=== PATIENT | female | born 1940 | race Caucasian/White ===

== ENCOUNTER 2021-05-28 09:05 | Inpatient (IN) | payer BC ==
[2021-05-28 10:14] LABS: BASO % 0.3 % (0-2.0); EOS % 0.2 % (0-4.5); HEMOGLOBIN 10.7 GM/dL (10.7-15.3); LYMPH % 7.3 % (8-40); MCH 27.9 pg (25.7-33.7); MCHC 33.5 g/dl (32.0-36.0); MEAN CELL VOLUME 83.2 fl (80-96); MEAN PLT VOLUME 7.6 fl (7.5-11.1); MONO % 5.4 % (3.8-10.2); NEUT % 86.8 % (42.8-82.8); PLATELET COUNT 464 10^3/uL (134-434); RBC 3.84 M/mm3 (3.60-5.2); RDW 15.5 % (11.6-15.6); WHITE BLOOD COUNT 15.7 K/mm3 (4.0-10.0)
[2021-05-28 10:20] LABS: INR 1.06 (0.83-1.09)
[2021-05-28 10:23] LABS: ACTIVATED PTT 31.3 SECONDS (25.2-36.5)
[2021-05-28 10:41] LABS: CHLORIDE 104 mmol/L (98-107); SODIUM 136 mmol/L (136-145)
[2021-05-28 10:44] LABS: ALBUMIN 2.6 g/dl (3.4-5.0); ANION GAP 11 MMOL/L (8-16); CALCIUM 8.8 mg/dL (8.5-10.1); CO2 21 mmol/L (21-32); LIPASE 122 U/L (73-393)
[2021-05-28 10:45] LABS: BLOOD UREA NITROGEN 22.6 mg/dL (7-18); GLUCOSE,RANDOM 186 mg/dL (74-106)
[2021-05-28 10:47] LABS: CREATININE 1.5 mg/dL (0.55-1.3); SGOT/AST 105 U/L (15-37); SGPT/ALT 97 U/L (13-61)
[2021-05-28 10:49] LABS: BILIRUBIN,TOTAL 2.5 mg/dL (0.2-1); TOT PROT 7.4 g/dl (6.4-8.2)
[2021-05-28] MEDS ORDERED: SODIUM CHLORIDE 0.9% 500 ML INFUS.BAG IV ONE (11:03)
[2021-05-28 11:21] LABS: ALK PHOS 1154 U/L (45-117)
[2021-05-28] MEDS ORDERED: PIPERACILLIN/TAZOB 4.5 GM 4.5 GM in DEXTROSE 5%-WATER 100 ML IVPB ONE (16:04)
[2021-05-28] MEDS ORDERED: PIPERACILLIN/TAZOB 4.5 GM 4.5 GM/100 ML BAG IVPB ONE (16:11)
[2021-05-28] MEDS ORDERED: LACTATED RINGERS SOLUTION 1,000 ML/1,000 ML INFUS.BAG IV SCH (16:15)
[2021-05-28] MEDS ORDERED: HEPARIN NA (PORCINE) 5,000 UNITS/ML 1ML VIAL SQ ONE (17:45)
[2021-05-28] MEDS ORDERED: HEPARIN NA (PORCINE) 5,000 UNITS/ML 1ML VIAL ONE (19:24)
[2021-05-28] MEDS ORDERED: PANTOPRAZOLE SODIUM 40 MG/100 ML BAG IVPB ONE (19:24)
[2021-05-28] MEDS: PANTOPRAZOLE SODIUM 40 MG VIAL IVPUSH SCH (19:35)
[2021-05-28] MEDS ORDERED: INSULIN (NOVOLOG) ASPART 100 UNITS/ML 10ML VIAL ONE (21:23)
[2021-05-28] MEDS: INSULIN SLIDING SCALE (NOVOLOG) 1 VIAL SQ SCH (22:07)
[2021-05-29] MEDS: PIPERACILLIN/TAZOB 3.375 GM 3.375 GM in DEXTROSE 5%-WATER - 50 ML IVPB SCH ×3 (02:00→11:36)
[2021-05-29] MEDS ORDERED: PIPERACILLIN/TAZOBACTAM 3.375 GM VIAL IVPB ONE ×3 (02:09→18:18)
[2021-05-29] MEDS ORDERED: DEXTROSE 5%-WATER - 50 ML IVPB ONE ×3 (02:10→18:18)
[2021-05-29 03:07] VITALS: BMI 22.9
[2021-05-29] MEDS: INSULIN SLIDING SCALE (NOVOLOG) 1 VIAL SQ SCH ×4 (06:44→21:34)
[2021-05-29 08:32] LABS: BASO % 0.5 % (0-2.0); EOS % 3.1 % (0-4.5); HEMATOCRIT 29.9 % (32.4-45.2); HEMOGLOBIN 9.9 GM/dL (10.7-15.3); LYMPH % 29.8 % (8-40); MCH 27.6 pg (25.7-33.7); MCHC 33.1 g/dl (32.0-36.0); MEAN CELL VOLUME 83.5 fl (80-96); MEAN PLT VOLUME 7.6 fl (7.5-11.1); MONO % 5.2 % (3.8-10.2); NEUT % 61.4 % (42.8-82.8); PLATELET COUNT 465 10^3/uL (134-434); RBC 3.58 M/mm3 (3.60-5.2); RDW 15.2 % (11.6-15.6); WHITE BLOOD COUNT 12.2 K/mm3 (4.0-10.0)
[2021-05-29 09:11] LABS: ALBUMIN 2.4 g/dl (3.4-5.0); BLOOD UREA NITROGEN 18.8 mg/dL (7-18)
[2021-05-29 09:12] LABS: CALCIUM 8.7 mg/dL (8.5-10.1); MAGNESIUM 1.9 mg/dL (1.8-2.4)
[2021-05-29 09:14] LABS: CREATININE 1.4 mg/dL (0.55-1.3); PHOSPHOROUS 3.3 mg/dL (2.5-4.9)
[2021-05-29 09:16] LABS: BILIRUBIN,TOTAL 2.8 mg/dL (0.2-1); TOT PROT 6.6 g/dl (6.4-8.2)
[2021-05-29] MEDS: PANTOPRAZOLE SODIUM 40 MG VIAL IVPUSH SCH (09:56)
[2021-05-29] MEDS ORDERED: ENOXAPARIN NA (PORCINE) 40 MG/0.4 ML DISP.SYRIN SQ SCH (10:00)
[2021-05-29] MEDS: LACTATED RINGERS SOLUTION 1,000 ML/1,000 ML INFUS.BAG IV SCH (11:09)
[2021-05-29 14:07] LABS: EPI CELLS 29 /uL (0-25.1); HYALINE CASTS 2 /uL (0-3.1); URINE APPEARANCE CLEAR; URINE BACTERIA 11 /uL (0-1359); URINE BILIRUBIN NEGATIVE (NEGATIVE); URINE COLOR YELLOW; URINE GLUCOSE (UA) NEGATIVE (NEGATIVE); URINE KETONE TRACE (NEGATIVE); URINE LEUK ESTERASE NEGATIVE (NEGATIVE); URINE NITRITE NEGATIVE (NEGATIVE); URINE PROTEIN 1+ (NEGATIVE); URINE UROBILINOGEN 0.2 mg/dL (0.2-1.0); URINE WBC 15 /uL (0-25.8)
[2021-05-29] MEDS ORDERED: MIDAZOLAM HCL 2 MG/2 ML SINGLE DOSE VIAL ONE (14:28)
[2021-05-29 14:58] LABS: URINE RBC 33.5 /uL (0-23.9); YEAST NONE SEEN (NEGATIVE)
[2021-05-29] MEDS ORDERED: IOHEXOL 300 MG/ML INFUS..BTL IJ ONE (15:00)
[2021-05-29] MEDS ORDERED: ONDANSETRON 4 MG/2 ML VIAL IVPUSH PRN (15:44)
[2021-05-29] MEDS ORDERED: ACETAMINOPHEN 1000 MG/100 ML VIAL (NON FORMULARY) IVPB PRN (17:05)
[2021-05-29] MEDS ORDERED: PIPERACILLIN/TAZOB 3.375 GM 3.375 GM in DEXTROSE 5%-WATER - 50 ML IVPB SCH (18:00)
[2021-05-29] MEDS ORDERED: PIPERACILLIN/TAZOB 2.25 GM 2.25 GM in DEXTROSE 5%-WATER - 50 ML IVPB SCH (18:00)
[2021-05-29] MEDS: PIPERACILLIN/TAZOB 3.375 GM 2.25 GM in DEXTROSE 5%-WATER - 50 ML IVPB SCH (18:23)
[2021-05-30] MEDS ORDERED: PIPERACILLIN/TAZOBACTAM 3.375 GM VIAL IVPB ONE (00:56)
[2021-05-30] MEDS ORDERED: DEXTROSE 5%-WATER - 50 ML IVPB ONE (00:56)
[2021-05-30] MEDS: LACTATED RINGERS SOLUTION 1,000 ML/1,000 ML INFUS.BAG IV SCH (01:11)
[2021-05-30] MEDS: PIPERACILLIN/TAZOB 3.375 GM 2.25 GM in DEXTROSE 5%-WATER - 50 ML IVPB SCH (01:11)
[2021-05-30 05:16] VITALS: BP 142/82; PULSE 82; TEMP 98.5
== END 2021-05-30 05:10 | disposition short-term general hospital (02) | DRG 445 ==
LOC: JER 09:05 → JERBED 15:21 → J8W 20:58
PROVIDERS: ADMIT Internal Medicine; ATTEND Internal Medicine
DX: K80.20 Calculus of gallbladder without cholecystitis without obstruction (principal); N17.9 Acute kidney failure, unspecified; R10.11 Right upper quadrant pain; R74.01 Elevation of levels of liver transaminase levels; D72.829 Elevated white blood cell count, unspecified; R91.8 Other nonspecific abnormal finding of lung field; N83.209 Unspecified ovarian cyst, unspecified side; E11.9 Type 2 diabetes mellitus without complications; E78.5 Hyperlipidemia, unspecified; I10 Essential (primary) hypertension; K21.9 Gastro-esophageal reflux disease without esophagitis; I95.9 Hypotension, unspecified
CPT/HCPCS: 36415; 74176-TC; 76000-TC-FY; 76705-TC; 80053; 81003; 82550; 82570; 82962; 83690; 83735; 84100; 84156; 84300; 84484; 85025; 85610; 85730; 87040; 93005; 93010; 93306-TC; 94760; 99285-25; C9803; J1644; U0003; U0005

== ENCOUNTER 2021-07-13 09:10 | Inpatient (IN) | payer BC ==
[2021-07-13 10:28] LABS: MCH 26.5 pg (25.7-33.7); MCHC 33.4 g/dl (32.0-36.0); MEAN CELL VOLUME 79.3 fl (80-96); MEAN PLT VOLUME 6.4 fl (7.5-11.1); PLATELET COUNT 521 10^3/uL (134-434); RDW 16.7 % (11.6-15.6); WHITE BLOOD COUNT 9.2 K/mm3 (4.0-10.0)
[2021-07-13 10:34] LABS: INR 2.84 (0.83-1.09); PROTHROMBIN TIME (PATIENT) 32.2 SEC (9.7-13.0)
[2021-07-13 10:37] LABS: ACTIVATED PTT 35.3 SECONDS (25.2-36.5)
[2021-07-13 10:49] LABS: CHLORIDE 104 mmol/L (98-107); SODIUM 133 mmol/L (136-145)
[2021-07-13 10:52] LABS: ALBUMIN 1.9 g/dl (3.4-5.0); ANION GAP 11 MMOL/L (8-16); BLOOD UREA NITROGEN 51.6 mg/dL (7-18); CO2 18 mmol/L (21-32); GLUCOSE,RANDOM 156 mg/dL (74-106)
[2021-07-13 10:55] LABS: CREATININE 1.4 mg/dL (0.55-1.3); SGOT/AST 21 U/L (15-37); SGPT/ALT 14 U/L (13-61)
[2021-07-13 10:57] LABS: ALK PHOS 248 U/L (45-117); BILIRUBIN,TOTAL 1.3 mg/dL (0.2-1); TOT PROT 6.7 g/dl (6.4-8.2)
[2021-07-13 11:00] LABS: N-TERMINAL BNP 3693.6 pg/ml (5-450)
[2021-07-13] MEDS ORDERED: FUROSEMIDE 40 MG/4 ML INJECTABLE VIAL IVPUSH ONE (11:04)
[2021-07-13] MEDS ORDERED: FUROSEMIDE 40 MG/4 ML INJECTABLE VIAL ONE (11:11)
[2021-07-13] MEDS ORDERED: RIVAROXABAN 20 MG TABLET PO SCH (18:00)
[2021-07-13] MEDS: INSULIN SLIDING SCALE (NOVOLOG) 1 VIAL SQ SCH (23:18)
[2021-07-14] MEDS: INSULIN SLIDING SCALE (NOVOLOG) 1 VIAL SQ SCH ×4 (06:01→21:33)
[2021-07-14 09:49] LABS: HEMATOCRIT 24.2 % (32.4-45.2); HEMOGLOBIN 7.9 GM/dL (10.7-15.3); MCH 25.9 pg (25.7-33.7); MCHC 32.7 g/dl (32.0-36.0); MEAN CELL VOLUME 79.4 fl (80-96); MEAN PLT VOLUME 6.6 fl (7.5-11.1); PLATELET COUNT 480 10^3/uL (134-434); RBC 3.05 M/mm3 (3.60-5.2); RDW 16.9 % (11.6-15.6); WHITE BLOOD COUNT 16.1 K/mm3 (4.0-10.0)
[2021-07-14 10:39] LABS: ALBUMIN 1.8 g/dl (3.4-5.0)
[2021-07-14 10:40] LABS: BLOOD UREA NITROGEN 52.8 mg/dL (7-18); CALCIUM 8.7 mg/dL (8.5-10.1)
[2021-07-14 10:41] LABS: MAGNESIUM 1.9 mg/dL (1.8-2.4)
[2021-07-14 10:42] LABS: CREATININE 1.4 mg/dL (0.55-1.3)
[2021-07-14 10:43] LABS: BILIRUBIN,TOTAL 1.8 mg/dL (0.2-1); TOT PROT 6.3 g/dl (6.4-8.2)
[2021-07-14] MEDS: PANTOPRAZOLE 20 MG TABLET PO SCH (11:38)
[2021-07-14] MEDS: FUROSEMIDE 40 MG/4 ML INJECTABLE VIAL IVPUSH SCH (11:39)
[2021-07-14 12:29] LABS: EPI CELLS 28 /uL (0-25.1); HYALINE CASTS 2 /uL (0-3.1); URINE APPEARANCE CLEAR; URINE BACTERIA 2840 /uL (0-1359); URINE BILIRUBIN NEGATIVE (NEGATIVE); URINE COLOR YELLOW; URINE GLUCOSE (UA) NEGATIVE (NEGATIVE); URINE KETONE NEGATIVE (NEGATIVE); URINE LEUK ESTERASE 2+ (NEGATIVE); URINE NITRITE NEGATIVE (NEGATIVE); URINE PROTEIN NEGATIVE (NEGATIVE); URINE RBC 37 /uL (0-23.9); URINE UROBILINOGEN 0.2 mg/dL (0.2-1.0); URINE WBC 47 /uL (0-25.8)
[2021-07-14] MEDS: ATORVASTATIN CA 20 MG TABLET (FP) PO SCH (21:33)
[2021-07-15] MEDS: INSULIN SLIDING SCALE (NOVOLOG) 1 VIAL SQ SCH ×4 (06:13→21:39)
[2021-07-15 08:51] LABS: HEMATOCRIT 25.2 % (32.4-45.2); HEMOGLOBIN 8.4 GM/dL (10.7-15.3); MCHC 33.2 g/dl (32.0-36.0); MEAN CELL VOLUME 78.3 fl (80-96); MEAN PLT VOLUME 6.4 fl (7.5-11.1); PLATELET COUNT 473 10^3/uL (134-434); RBC 3.23 M/mm3 (3.60-5.2); RDW 17.2 % (11.6-15.6); WHITE BLOOD COUNT 10.4 K/mm3 (4.0-10.0)
[2021-07-15 09:02] LABS: INR 1.35 (0.83-1.09); PROTHROMBIN TIME (PATIENT) 15.2 SEC (9.7-13.0)
[2021-07-15 09:05] LABS: ACTIVATED PTT 28.8 SECONDS (25.2-36.5)
[2021-07-15 09:27] LABS: MAGNESIUM 2.1 mg/dL (1.8-2.4)
[2021-07-15 09:28] LABS: BLOOD UREA NITROGEN 53.4 mg/dL (7-18); CALCIUM 8.9 mg/dL (8.5-10.1)
[2021-07-15 09:29] LABS: ALBUMIN 1.8 g/dl (3.4-5.0)
[2021-07-15 09:30] LABS: CREATININE 1.2 mg/dL (0.55-1.3)
[2021-07-15 09:31] LABS: TOT PROT 6.6 g/dl (6.4-8.2)
[2021-07-15 09:32] LABS: BILIRUBIN,DIRECT 0.8 mg/dL (0.0-0.2); PHOSPHOROUS 4.5 mg/dL (2.5-4.9)
[2021-07-15 09:33] LABS: BILIRUBIN,TOTAL 1.2 mg/dL (0.2-1); TOT PROT 6.6 g/dl (6.4-8.2)
[2021-07-15] MEDS: PANTOPRAZOLE 20 MG TABLET PO SCH (09:41)
[2021-07-15] MEDS: amLODIPine BESYLATE 10 MG TABLET (FP) PO SCH (09:41)
[2021-07-15] MEDS: FUROSEMIDE 40 MG/4 ML INJECTABLE VIAL IVPUSH SCH (09:52)
[2021-07-15] MEDS ORDERED: HEPARIN NA (PORCINE) 5,000 UNITS/ML 1ML VIAL IVPUSH PRN ×4 (11:13→15:06)
[2021-07-15] MEDS ORDERED: HEPARIN - 25,000 UNIT in SODIUM CHLORIDE 495 ML IV SCH (11:50)
[2021-07-15] MEDS: HEPARIN - 25,000 UNIT in SODIUM CHLORIDE 495 ML IV SCH (16:37)
[2021-07-15] MEDS: ATORVASTATIN CA 20 MG TABLET (FP) PO SCH (21:36)
[2021-07-15 23:51] VITALS: BMI 24.9
[2021-07-16 03:11] LABS: INR 1.24 (0.83-1.09); PROTHROMBIN TIME (PATIENT) 13.9 SEC (9.7-13.0)
[2021-07-16] MEDS: INSULIN SLIDING SCALE (NOVOLOG) 1 VIAL SQ SCH ×4 (06:40→22:26)
[2021-07-16 08:53] LABS: HEMATOCRIT 24.2 % (32.4-45.2); HEMOGLOBIN 7.9 GM/dL (10.7-15.3); MCH 25.9 pg (25.7-33.7); MCHC 32.9 g/dl (32.0-36.0); MEAN CELL VOLUME 78.7 fl (80-96); MEAN PLT VOLUME 6.6 fl (7.5-11.1); PLATELET COUNT 458 10^3/uL (134-434); RBC 3.07 M/mm3 (3.60-5.2); RDW 17.7 % (11.6-15.6); WHITE BLOOD COUNT 11.7 K/mm3 (4.0-10.0)
[2021-07-16 08:57] LABS: INR 1.25 (0.83-1.09); PROTHROMBIN TIME (PATIENT) 14.6 SEC (9.7-13.0)
[2021-07-16 09:03] LABS: ACTIVATED PTT 35.2 SECONDS (25.2-36.5)
[2021-07-16 09:29] LABS: ALBUMIN 1.8 g/dl (3.4-5.0); BLOOD UREA NITROGEN 49.4 mg/dL (7-18); CALCIUM 8.6 mg/dL (8.5-10.1); MAGNESIUM 2.2 mg/dL (1.8-2.4)
[2021-07-16 09:31] LABS: BILIRUBIN,DIRECT 1.1 mg/dL (0.0-0.2)
[2021-07-16 09:32] LABS: CREATININE 1.2 mg/dL (0.55-1.3); PHOSPHOROUS 3.9 mg/dL (2.5-4.9)
[2021-07-16 09:34] LABS: BILIRUBIN,TOTAL 1.6 mg/dL (0.2-1)
[2021-07-16 09:35] LABS: TOT PROT 6.6 g/dl (6.4-8.2)
[2021-07-16] MEDS: FUROSEMIDE 40 MG/4 ML INJECTABLE VIAL IVPUSH SCH (09:52)
[2021-07-16] MEDS: PANTOPRAZOLE 20 MG TABLET PO SCH (09:52)
[2021-07-16] MEDS: amLODIPine BESYLATE 10 MG TABLET (FP) PO SCH (09:52)
[2021-07-16] MEDS: HEPARIN - 25,000 UNIT in SODIUM CHLORIDE 495 ML IV SCH (17:39)
[2021-07-16] MEDS ORDERED: PT OWN MED DRAWER 7, Y5N ONE (18:51)
[2021-07-16] MEDS ORDERED: HEPARIN INFUSION - 25,000 UNITS/500 ML INFUS.BAG IVPB ONE ×2 (20:53→20:54)
[2021-07-16] MEDS: ATORVASTATIN CA 20 MG TABLET (FP) PO SCH (22:26)
[2021-07-17] MEDS: INSULIN SLIDING SCALE (NOVOLOG) 1 VIAL SQ SCH ×4 (06:52→21:11)
[2021-07-17 09:13] LABS: INR 1.24 (0.83-1.09); PROTHROMBIN TIME (PATIENT) 13.9 SEC (9.7-13.0)
[2021-07-17 09:17] LABS: HEMATOCRIT 24.5 % (32.4-45.2); HEMOGLOBIN 8.3 GM/dL (10.7-15.3); MCH 26.2 pg (25.7-33.7); MCHC 33.9 g/dl (32.0-36.0); MEAN CELL VOLUME 77.3 fl (80-96); MEAN PLT VOLUME 6.7 fl (7.5-11.1); PLATELET COUNT 468 10^3/uL (134-434); RBC 3.17 M/mm3 (3.60-5.2); RDW 17.7 % (11.6-15.6); WHITE BLOOD COUNT 13.3 K/mm3 (4.0-10.0)
[2021-07-17 09:32] LABS: ALBUMIN 1.8 g/dl (3.4-5.0); BLOOD UREA NITROGEN 40.3 mg/dL (7-18); CALCIUM 8.2 mg/dL (8.5-10.1)
[2021-07-17 09:33] LABS: MAGNESIUM 1.8 mg/dL (1.8-2.4)
[2021-07-17 09:34] LABS: BILIRUBIN,TOTAL 2.7 mg/dL (0.2-1); TOT PROT 6.6 g/dl (6.4-8.2)
[2021-07-17 09:35] LABS: CREATININE 1.1 mg/dL (0.55-1.3)
[2021-07-17] MEDS: amLODIPine BESYLATE 10 MG TABLET (FP) PO SCH (10:07)
[2021-07-17] MEDS: PANTOPRAZOLE 20 MG TABLET PO SCH (10:07)
[2021-07-17] MEDS: FUROSEMIDE 40 MG/4 ML INJECTABLE VIAL IVPUSH SCH (10:07)
[2021-07-17] MEDS ORDERED: HEPARIN NA (PORCINE) 5,000 UNITS/ML 1ML VIAL IVPUSH PRN ×2 (15:17)
[2021-07-17] MEDS: HEPARIN - 25,000 UNIT in SODIUM CHLORIDE 495 ML IV SCH ×2 (16:03→23:59)
[2021-07-17 17:55] LABS: BF WBC & OTHER NUCLEATED CELLS 2492 /mm3; BODY FLUID MACROPHAGES 3 %; BODY FLUID MONOCYTE 4 %
[2021-07-17] MEDS ORDERED: RIVAROXABAN 20 MG TABLET PO SCH (18:00)
[2021-07-17] MEDS: ATORVASTATIN CA 20 MG TABLET (FP) PO SCH (21:11)
[2021-07-18] MEDS: INSULIN SLIDING SCALE (NOVOLOG) 1 VIAL SQ SCH ×4 (06:00→21:47)
[2021-07-18] MEDS: PANTOPRAZOLE 20 MG TABLET PO SCH (09:32)
[2021-07-18] MEDS: amLODIPine BESYLATE 10 MG TABLET (FP) PO SCH (09:32)
[2021-07-18] MEDS: FUROSEMIDE 40 MG/4 ML INJECTABLE VIAL IVPUSH SCH (09:32)
[2021-07-18 10:24] LABS: HEMOGLOBIN 8.5 GM/dL (10.7-15.3); MCH 25.6 pg (25.7-33.7); MCHC 32.8 g/dl (32.0-36.0); MEAN PLT VOLUME 7.3 fl (7.5-11.1); PLATELET COUNT 438 10^3/uL (134-434); RBC 3.33 M/mm3 (3.60-5.2); RDW 17.3 % (11.6-15.6); WHITE BLOOD COUNT 12.1 K/mm3 (4.0-10.0)
[2021-07-18] MEDS: HEPARIN - 25,000 UNIT in SODIUM CHLORIDE 495 ML IV SCH ×3 (10:42→18:50)
[2021-07-18] MEDS ORDERED: PIPERACILLIN/TAZOB 3.375 GM 3.375 GM in DEXTROSE 5%-WATER - 50 ML IVPB SCH (10:45)
[2021-07-18 10:48] LABS: BLOOD UREA NITROGEN 31.9 mg/dL (7-18)
[2021-07-18 10:49] LABS: ALBUMIN 1.6 g/dl (3.4-5.0); CALCIUM 8.1 mg/dL (8.5-10.1)
[2021-07-18 10:50] LABS: MAGNESIUM 1.9 mg/dL (1.8-2.4)
[2021-07-18 10:53] LABS: PHOSPHOROUS 2.1 mg/dL (2.5-4.9)
[2021-07-18 10:54] LABS: BILIRUBIN,TOTAL 1.8 mg/dL (0.2-1); TOT PROT 6.3 g/dl (6.4-8.2)
[2021-07-18] MEDS ORDERED: DEXTROSE 5%-WATER - 50 ML IVPB ONE ×2 (11:22→16:52)
[2021-07-18] MEDS ORDERED: PIPERACILLIN/TAZOBACTAM 3.375 GM VIAL IVPB ONE ×2 (11:22→16:52)
[2021-07-18] MEDS: POTASSIUM CHLORIDE TABS 20 MEQ TABLET.ER (FP) PO SCH ×2 (11:25→21:48)
[2021-07-18] MEDS: PIPERACILLIN/TAZOB 3.375 GM 3.375 GM in DEXTROSE 5%-WATER - 50 ML IVPB SCH ×2 (11:26→17:29)
[2021-07-18] MEDS ORDERED: INSULIN (NOVOLOG) ASPART 100 UNITS/ML 10ML VIAL ONE (11:42)
[2021-07-18] MEDS ORDERED: HEPARIN NA (PORCINE) 5,000 UNITS/ML 1ML VIAL SQ ONE ×2 (11:45→13:00)
[2021-07-18] MEDS ORDERED: HEPARIN NA (PORCINE) 5,000 UNITS/ML 1ML VIAL IVPUSH ONE (13:00)
[2021-07-18 15:03] VITALS: PULSE 95
[2021-07-18] MEDS ORDERED: RIVAROXABAN 20 MG TABLET PO SCH (18:00)
[2021-07-18] MEDS: ATORVASTATIN CA 20 MG TABLET (FP) PO SCH (21:48)
[2021-07-18 23:15] VITALS: BP 128/61; TEMP 98.8
[2021-07-19] MEDS ORDERED: PIPERACILLIN/TAZOBACTAM 3.375 GM VIAL IVPB ONE (01:19)
[2021-07-19] MEDS ORDERED: DEXTROSE 5%-WATER - 50 ML IVPB ONE (01:19)
[2021-07-19] MEDS: PIPERACILLIN/TAZOB 3.375 GM 3.375 GM in DEXTROSE 5%-WATER - 50 ML IVPB SCH (01:37)
[2021-07-21 18:08] LABS: BODY FLUID ALBUMIN 1.3 g/dL (Not Estab.)
== END 2021-07-19 04:32 | disposition short-term general hospital (02) | DRG 436 ==
LOC: JER 09:10 → JERBED 11:05 → J8W 22:44
PROVIDERS: ADMIT Internal Medicine; ATTEND Internal Medicine
PROC: 0W9G30Z Drainage of Peritoneal Cavity with Drainage Device, Percutaneous Approach (ICD-10-PCS; principal; 2021-07-14)
DX: C24.9 Malignant neoplasm of biliary tract, unspecified (principal); K76.6 Portal hypertension; N17.9 Acute kidney failure, unspecified; R18.8 Other ascites; K82.8 Other specified diseases of gallbladder; E11.22 Type 2 diabetes mellitus with diabetic chronic kidney disease; E78.5 Hyperlipidemia, unspecified; K21.9 Gastro-esophageal reflux disease without esophagitis; I12.9 Hypertensive chronic kidney disease with stage 1 through stage 4 chronic kidney disease, or unspecified chronic kidney disease; N18.9 Chronic kidney disease, unspecified; E88.09 Other disorders of plasma-protein metabolism, not elsewhere classified; R91.1 Solitary pulmonary nodule; D64.9 Anemia, unspecified; E87.70 Fluid overload, unspecified; C24.0 Malignant neoplasm of extrahepatic bile duct; C23 Malignant neoplasm of gallbladder
CPT/HCPCS: 36415; 49083; 71045-TC-FY; 71260-TC; 76700-TC; 80053; 80061; 80076; 81003; 82042; 82150; 82550; 82945; 82962; 82977; 83036; 83615; 83735; 83880; 83986; 84100; 84157; 84443; 84478; 84484; 85025; 85027; 85610; 85730; 86301; 87070; 87075; 87086; 87102; 87116; 87186; 87205; 87206; 87210; 88108; 88305-TC; 88341-TC; 93005; 93010; 94010; 97116-GP; 97161-GP; 99285-25; C9803; J1644; Q9967; U0003; U0005